=== PATIENT | male | born 1975 | race Caucasian/White ===

== ENCOUNTER 2024-03-04 19:02 | Emergency (ER) | payer BC ==
[~2024-03-04] VITALS: Ht 177.8 cm; Wt 97.5 kg
[2024-03-04 19:04] VITALS: BP 166/94; PULSE 64; RESP 18; TEMP 97.5; O2SAT 98
[2024-03-04] MEDS: ACETAMINOPHEN EXTRA STRENGTH 500 MG TAB PO ONE (21:20)
[2024-03-04] MEDS: KETOROLAC 30 MG/ML VIAL IM ONE (21:21)
[2024-03-04 21:30] VITALS: BP 166/94; PULSE 64; RESP 18; TEMP 97.5; O2SAT 98
[2024-03-04] MEDS: LIDOCAINE/EPI 1% 1:100000 20 ML VIAL INJ ONE (21:36)
== END 2024-03-04 22:04 | disposition home or self-care (01) ==
LOC: MED 19:02
DX: S62.636A Displaced fracture of distal phalanx of right little finger, initial encounter for closed fracture (principal); S62.604A Fracture of unspecified phalanx of right ring finger, initial encounter for closed fracture; S61.214A Laceration without foreign body of right ring finger without damage to nail, initial encounter; S60.151A Contusion of right little finger with damage to nail, initial encounter; W23.0XXA Caught, crushed, jammed, or pinched between moving objects, initial encounter; Y93.89 Activity, other specified; Y92.89 Other specified places as the place of occurrence of the external cause; Y99.8 Other external cause status
CPT/HCPCS: 11740; 12001; 29130; 73130; 90471; 90715; 96372; 99284; J1885; J2001